=== PATIENT | female | born 1995 | race African-American/Black ===

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

== ENCOUNTER 2017-06-13 11:13 | Emergency (ER) | payer SELFPAY ==
[2017-06-13 11:35] LABS: URINE HCG POC HCG NEGATIVE (Negative)
[2017-06-13 11:37] LABS: BILIRUBIN,URINE NEGATIVE (NEG); CLARITY,URINE CLOUDY; COLOR,URINE YELLOW; GLUCOSE,URINE NEGATIVE (NEG); NITRITE,URINE NEGATIVE (NEG); PROTEIN,URINE NEGATIVE (NEG-TRACE); UROBILINOGEN,URINE 0.2 mg/dL (0.2 mg/dL)
[2017-06-13 11:39] LABS: SQUAMOUS EPITHELIAL CELL,UR MANY /LPF
[2017-06-13 11:40] LABS: BACTERIA,URINE MOD /HPF (0-FEW); RBC,URINE OCC /HPF (0-2); WBC,URINE 20-40 /HPF (0-4)
== END 2017-06-13 12:16 | disposition home or self-care (01) ==
LOC: ER 11:13
DX: N39.0 Urinary tract infection, site not specified (principal); J45.909 Unspecified asthma, uncomplicated
CPT/HCPCS: 81001; 81025; 99283